=== PATIENT | female | born 2000 | race Caucasian/White ===

== ENCOUNTER 2021-06-12 10:48 | Inpatient (IN) | payer OTHER ==
[~2021-06-12] VITALS: Ht 157.5 cm; Wt 92.8 kg
[2021-06-12] MEDS ORDERED: PROCHLORPERAZINE 10 MG/2 ML VIAL. IV ONE (11:15)
[2021-06-12] MEDS ORDERED: IV NORMAL SALINE 1,000ML 1,000 ML IV ONE (11:15)
[2021-06-12] MEDS ORDERED: diphenhydrAMINE 50 MG/ML VIAL IVP ONE (11:15)
[2021-06-12] MEDS ORDERED: KETOROLAC 15 MG/ML VIAL. IVP ONE (11:15)
--- NOTE | 2021-06-12 11:15 | PHYS DOC ---
General Adult EDM: Chief Complaint: HEADACHE HPI: HPI: Patient is a 21-year-old female who presents to the ER with a headache that started yesterday. Patient states that she has been sleeping and therefore patient has had no treatment prior to arrival. She states that the headache is a frontal headache. She rates it 6 out of 10. She reports one episode of vomiting. She is also having photophobia. She states that this is the worst headache she has had. Patient does not have a history of headaches or migraines. She states that the headache is progressively gotten worse, denies thunderclap headache. She also denies diarrhea, blood in her vomit, abdominal pain, fevers, vision changes, sick exposures. (VANDANA GLOVER APRN) Review of Systems: Review of Systems: 14 body systems of the review of systems have been reviewed. See HPI for pertinent positive and negative responses, otherwise all other systems are negative, nonpertinent or noncontributory (VANDANA GLOVER APRN) Physical Exam: PE: Constitutional: Well developed, well nourished, no acute distress, non-toxic appearance. [] HENT: Normocephalic, atraumatic, bilateral external ears normal, oropharynx moist, no oral exudates, nose normal. [] Eyes: PERRLA, EOMI, 5 mm pupils bilaterally, conjunctiva normal, no discharge. [] Neck: Normal range of motion, no stridor, no nuchal rigidity Cardiovascular:Heart rate regular rhythm, no murmur [] Lungs & Thorax: Bilateral breath sounds clear to auscultation [] Abdomen: Bowel sounds normal, soft, no tenderness, no masses, no pulsatile masses. [] Skin: Warm, dry, no erythema, no rash. [] Back: Normal range of motion Extremities: No tenderness, no cyanosis, no clubbing, ROM intact, no edema. [] Neurologic: Alert and oriented X 3, normal motor function, normal sensory function, no focal deficits noted. [] Psychologic: Affect normal, judgement normal, mood normal. [] (VANDANA GLOVER APRN) Current Patient Data: Labs: Laboratory Tests Test 06/12/21 11:00 06/12/21 11:33 06/12/21 11:40 06/12/21 13:39 Urine Collection Type Unknown Urine Color Yellow Urine Clarity Clear Urine pH 6.0 Urine Specific [place] 1.020 Urine Protein Neg Urine Glucose (UA) Neg mg/dL Urine Ketones (Stick) Neg mg/dL Urine Blood Neg Urine Nitrite Neg Urine Bilirubin Neg Urine Urobilinogen Dipstick 0.2 mg/dL Urine Leukocyte Esterase Neg Urine RBC 0 /HPF Urine WBC Occ /HPF Urine Squamous Epithelial Cells Mod /LPF Urine Bacteria Few /HPF Urine Mucus Mod /LPF Bedside Urine HCG, Qualitative hcg negative White Blood Count 8.8 x10^3/uL Red Blood Count 4.36 x10^6/uL Hemoglobin 12.3 g/dL Hematocrit 37.1 % Mean Corpuscular Volume 85 fL Mean Corpuscular Hemoglobin 28 pg Mean Corpuscular Hemoglobin Concent 33 g/dL Red Cell Distribution Width 12.8 % Platelet Count 284 x10^3/uL Neutrophils (%) (Auto) 78 % Lymphocytes (%) (Auto) 17 % Monocytes (%) (Auto) 4 % Eosinophils (%) (Auto) 1 % Basophils (%) (Auto) 1 % Neutrophils # (Auto) 6.8 x10^3uL Lymphocytes # (Auto) 1.5 x10^3/uL Monocytes # (Auto) 0.4 x10^3/uL Eosinophils # (Auto) 0.1 x10^3/uL Basophils # (Auto) 0.1 x10^3/uL Sodium Level 140 mmol/L Potassium Level 3.9 mmol/L Chloride Level 105 mmol/L Carbon Dioxide Level 23 mmol/L Anion Gap 12 Blood Urea Nitrogen 10 mg/dL Creatinine 0.6 mg/dL Estimated GFR (Cockcroft-Gault) 126.2 BUN/Creatinine Ratio 17 Glucose Level 101 mg/dL Calcium Level 8.8 mg/dL Total Bilirubin 0.3 mg/dL Aspartate Amino Transf (AST/SGOT) 15 U/L Alanine Aminotransferase (ALT/SGPT) 16 U/L Alkaline Phosphatase 96 U/L Total Protein 7.2 g/dL Albumin 3.1 g/dL Albumin/Globulin Ratio 0.8 SARS-CoV-2 Antigen (Rapid) Negative Test 06/12/21 15:28 Prothrombin Time 9.4 SEC Prothromb Time International Ratio 0.9 Activated Partial Thromboplast Time 23 SEC Current Medications Medications (Trade) Dose Ordered Sig/Jarad Route PRN Reason Start Time Stop Time Status Last Admin Dose Admin Prochlorperazine Edisylate (Compazine) 10 mg 1X ONCE IV 06/12/21 11:15 06/12/21 11:22 DC 06/12/21 11:39 Sodium Chloride 1,000 ml @ 1,000 mls/hr 1X ONCE IV 06/12/21 11:15 06/12/21 12:14 DC 06/12/21 11:40 Diphenhydramine HCl (Benadryl) 25 mg 1X ONCE IVP 06/12/21 11:15 06/12/21 11:22 DC 06/12/21 11:39 Ketorolac Tromethamine (Toradol 15mg Vial) 15 mg 1X ONCE IVP 06/12/21 11:15 06/12/21 11:22 DC 06/12/21 11:40 Diphenhydramine HCl (Benadryl) 50 mg STK-MED ONCE .ROUTE 06/12/21 11:17 06/12/21 11:18 DC Prochlorperazine Edisylate (Compazine) 10 mg STK-MED ONCE .ROUTE 06/12/21 11:18 06/12/21 11:18 DC Ketorolac Tromethamine (Toradol 15mg Vial) 15 mg STK-MED ONCE .ROUTE 06/12/21 11:18 06/12/21 11:19 DC Iohexol (Omnipaque 350 Mg/ml) 100 ml 1X ONCE IV 06/12/21 12:45 06/12/21 12:50 DC 06/12/21 13:00 Heparin Sodium/ Dextrose 250 ml @ 15 mls/hr CONT PRN IV SEE I/O RECORD 06/12/21 16:15 Heparin Sodium (Porcine) (Heparin Sodium) 7,450 unit 1X ONCE IV 06/12/21 16:15 06/12/21 16:26 DC Heparin Sodium (Porcine) (Heparin Sodium) 2,800 unit PRN Q6HRS PRN IV FOR PTT LESS THAN 24 SECONDS 06/12/21 16:15 (VANDANA GLOVER APRN) EKG: EKG: [] (VANDANA GLOVER APRN) Radiology/Procedures: Radiology/Procedures: REASON: headache PROCEDURE: CT HEAD WO CONTRAST CT HEAD/BRAIN WO Date: 06/12/2021 11:33 AM Clinical Indication: headache Comparison: None. Technique: 5 mm axial tomographic images were obtained of the head without contrast. These were viewed on brain and bone windows. One or more of the following dose reduction techniques were utilized: Automated exposure control (AEC), Adjustment of mA and/or kV according to patient size, Use of iterative reconstruction technique such as ASiR, CT scan done according to ALARA and image gently/image wisely Findings: Asymmetric hyperdensity in the left transverse sinus. The brain parenchyma is normal in attenuation. No intra- or extra-axial mass or fluid collection. No acute hemorrhage. The ventricles are normal in size, shape, and morphology. The hernández-white matter junction is normal. The subarachnoid cisterns are patent. The visualized paranasal sinuses are normal. The visualized portions of the orbits and globes are normal. The mastoid air cells are clear. The pediatric registered nurse topogram shows no lytic lesion or fracture. Impression: Asymmetric hyperdensity in the left transverse sinus. CT venogram is recommended to exclude dural venous sinus thrombosis. Electronically signed by: Galina Curiel MD (06/12/2021 11:40 AM) [id number] DICTATED AND SIGNED BY: GALINA CURIEL MD DATE: 06/12/21 1135 CC: VANDANA GLOVER APRN; MIRELLA SR MD, MPH ~MTH0 0 []PROCEDURE: CT ANGIOGRAPHY HEAD CT venogram of the head with contrast 06/12/2021 CLINICAL HISTORY: Headaches. Asymmetric density seen within the left transverse sinus on CT scan of the head from earlier today. TECHNIQUE: After the intravenous administration of 100 cc of Omnipaque 350 using a 40 second delay, contiguous, 0.625 mm axial sections were obtained through the head. 2 mm reconstructed axial and 3-D MIP sagittal and coronal along with volume rendered 3-D reconstructed images were obtained. One or more of the following individualized dose reduction techniques were utilized for this study: 1. Automated exposure control. 2. Adjustment of the mA and/or kV according to patient size. 3. Use of iterative reconstruction technique. FINDINGS: Comparison is made to the patient's CT scan of the head performed earlier today. A largely occlusive filling defect consistent with thrombus is seen involving the majority of the left transverse sinus. The right transverse sinus is patent. The superior sagittal sinus, inferior sagittal sinus, vein of Femi and straight sinus are patent. The sigmoid sinuses, and jugular bulbs are patent. No area of abnormal parenchymal contrast enhancement is seen. 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 This finding was discussed with the emergency department. FOR INTERNAL CODING PURPOSES RESULT CODE: (C) Electronically signed by: Baron Arceo MD (06/12/2021 1:27 PM) [id number] DICTATED AND SIGNED BY: BARON ARCEO MD DATE: 06/12/21 131 CC: ZONIA MEADOWS DO; VANDANA GLOVER APRN; MIRELLA SR MD, MPH ~MTH0 0 (VANDANA GLOVER APRN) Heart Score: C/O Chest Pain: No Risk Factors: Risk Factors: DM, Current or recent (<one month) smoker, HTN, HLP, family history of CAD, obesity. Risk Scores: Score 0 - 3: 2.5% MACE over next 6 weeks - Discharge Home Score 4 - 6: 20.3% MACE over next 6 weeks - Admit for Clinical Observation Score 7 - 10: 72.7% MACE over next 6 weeks - Early Invasive Strategies (VANDANA GLOVER APRN) Course & Med Decision Making: Course & Med Decision Making Pertinent Labs and Imaging studies reviewed. (See chart for details) [] Patient is a 21-year-old female being seen in the ER for frontal headache with nausea/vomiting and photophobia. Patient does have a history of headaches. Patient denies any nuchal rigidity or meningeal signs. Patient denies thunderclap headache symptoms. Patient has no medical history. Her vital signs are stable. Her physical exam is reassuring. Work-up in the ER consisted of a CT scan of her head since patient does not have a history of headaches and she states this is the worst headache that she has had. Patient treated with migraine cocktail. She states that that has improved her headache. CT scan of head shows left transverse sinus thrombosis. I spoke to Dr. Savage at [facility] and he stated that he could not accept the patient at [facility] due to to the possibility of acute intervention needed. I attempted to transfer the patient to [facility]. I spoke to Dr. Marquis who is on-call for the neurology group she stated that the patient would only need heparin administration no acute intervention and because is on high-volume, they cannot accept the patient at this time. Patient was given heparin bolus and heparin drip. I spoke to Dr. Mccarthy and he agreed to see the patient in the hospital. I spoke to Dr. Diamond and discussed patient's case with him, he agreed to accept the patient under his services. Patient updated on findings and plan of care. Patient is agreeable to plan of care. Patient's vital signs continue to be stable and she is in no acute distress and alert and focal neurological deficits. Care transferred at 1718 (VANDANA GLOVER APRN) Course & Med Decision Making I was the Attending physician on the above date of service of this patient. This patient was evaluated, examined, treated, and dispositioned from the emergency department by the mid-level practitioner. I reviewed initial CT head findings w [facility] and recommended further investigation. I coordinated care and recommended hospital transfer, given COVID-19 pandemic and issues with capacity at all [facility], decision was made to admit here. Electronically signed, Zonia Meadows DO (ZONIA MEADOWS DO) Florentin Disclaimer: Florentin Disclaimer: This electronic medical record was generated, in whole or in part, using a voice recognition dictation system. (VANDANA GLOVER APRN) Departure Departure: Impression: Primary Impression: Transverse sinus thrombosis Disposition: ADMITTED INPATIENT Admitting Physician: Mirna Polanco (VANDANA GLOVER APRN) Condition: STABLE Referrals: MIRELLA SR MD, MPH (PCP) VANDANA GLOVER APRN Jun 12, 2021 11:15 ZONIA MEADOWS DO Jun 13, 2021 06:27
[2021-06-12] MEDS ORDERED: diphenhydrAMINE 50 MG/ML VIAL ONE (11:17)
[2021-06-12] MEDS ORDERED: KETOROLAC 15 MG/ML VIAL. ONE (11:18)
[2021-06-12] MEDS ORDERED: PROCHLORPERAZINE 10 MG/2 ML VIAL. ONE (11:18)
--- NOTE | 2021-06-12 11:43 | RAD ---
CT HEAD/BRAIN WO Date: 06/12/2021 11:33 AM Clinical Indication: headache Comparison: None. Technique: 5 mm axial tomographic images were obtained of the head without contrast. These were view ed on brain and bone windows. One or more of the following dose reduction techniques were utilized: A utomated exposure control (AEC), Adjustment of mA and/or kV according to patient size, Use of iterati ve reconstruction technique such as ASiR, CT scan done according to ALARA and image gently/image rizzo ly Findings: Asymmetric hyperdensity in the left transverse sinus. The brain parenchyma is normal in attenuation. No intra- or extra-axial mass or fluid collection. No acute hemorrhage. The ventricles are normal in size, shape, and morphology. The hernández-white matter annalee ction is normal. The subarachnoid cisterns are patent. The visualized paranasal sinuses are normal. The visualized portions of the orbits and globes are no rmal. The mastoid air cells are clear. The wind technician topogram shows no lytic lesion or fracture. Impression: Asymmetric hyperdensity in the left transverse sinus. CT venogram is recommended to exclude dural livier ous sinus thrombosis. Electronically signed by: Adam Curiel MD (06/12/2021 11:40 AM) [id number]
[2021-06-12 12:18] LABS: BILIRUBIN,URINE NEG (NEG); CLARITY,URINE CLEAR; COLOR,URINE YELLOW; GLUCOSE,URINE NEG (NEG)
[2021-06-12 12:19] LABS: BACTERIA,URINE FEW /HPF (0-FEW); NITRITE,URINE NEG (NEG); RBC,URINE 0 /HPF (0-2); SQUAMOUS EPITHELIAL CELL,UR MOD /LPF; UROBILINOGEN,URINE 0.2 mg/dL (0.2 mg/dL); WBC,URINE OCC /HPF (0-4)
[2021-06-12] MEDS ORDERED: IOHEXOL 350 MG/ML 100 ML VIAL. IV ONE (12:45)
--- NOTE | 2021-06-12 13:30 | RAD ---
CT venogram of the head with contrast 06/12/2021 CLINICAL HISTORY: Headaches. Asymmetric density seen within the left transverse sinus on CT scan of t he head from earlier today. TECHNIQUE: After the intravenous administration of 100 cc of Omnipaque 350 using a 40 second delay, c ontiguous, 0.625 mm axial sections were obtained through the head. 2 mm reconstructed axial and 3-D M IP sagittal and coronal along with volume rendered 3-D reconstructed images were obtained. One or more of the following individualized dose reduction techniques were utilized for this study: 1. Automated exposure control. 2. Adjustment of the mA and/or kV according to patient size. 3. Use of iterative reconstruction technique. FINDINGS: Comparison is made to the patient's CT scan of the head performed earlier today. A largely occlusive filling defect consistent with thrombus is seen involving the majority of the lef t transverse sinus. The right transverse sinus is patent. The superior sagittal sinus, inferior sagit evelia sinus, vein of Femi and straight sinus are patent. The sigmoid sinuses, and jugular bulbs are pa tent. No area of abnormal parenchymal contrast enhancement is seen. 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 This finding was discussed with the emergency department. FOR INTERNAL CODING PURPOSES RESULT CODE: (C) Electronically signed by: Baron Arceo MD (06/12/2021 1:27 PM) [id number]
[2021-06-12 14:39] LABS: BASO # 0.1 x10^3/uL (0.0-0.2); BASO % 1 % (0-3); EOS # 0.1 x10^3/uL (0.0-0.7); EOS % 1 % (0-3); HEMATOCRIT 37.1 % (36.0-47.0); HEMOGLOBIN 12.3 g/dL (12.0-15.5); LYMPH # 1.5 x10^3/uL (1.0-4.8); LYMPH % 17 % (24-48); MEAN CORPUSCULAR HEMOGLOBIN 28 pg (25-35); MEAN CORPUSCULAR HGB CONC 33 g/dL (31-37); MEAN CORPUSCULAR VOLUME 85 fL (79-100); MONO # 0.4 x10^3/uL (0.0-1.1); MONO % 4 % (0-9); NEUT # 6.8 x10^3uL (1.8-7.7); NEUT % 78 % (31-73); PLATELET COUNT 284 x10^3/uL (140-400); RED BLOOD COUNT 4.36 x10^6/uL (3.50-5.40); RED CELL DISTRIBUTION WIDTH 12.8 % (11.5-14.5); WHITE BLOOD COUNT 8.8 x10^3/uL (4.0-11.0)
[2021-06-12 14:47] LABS: CALCIUM 8.8 mg/dL (8.5-10.1); CREATININE 0.6 mg/dL (0.6-1.0); GFR 126.2; POTASSIUM 3.9 mmol/L (3.5-5.1)
[2021-06-12 14:50] LABS: ALBUMIN 3.1 g/dL (3.4-5.0); ALBUMIN/GLOBULIN RATIO 0.8 (1.0-1.7); TOTAL BILIRUBIN 0.3 mg/dL (0.2-1.0); TOTAL PROTEIN 7.2 g/dL (6.4-8.2)
[2021-06-12] MEDS ORDERED: HEPARIN 25,000UTS/250ML PREMIX 250 ML IV PRN (16:15)
[2021-06-12] MEDS ORDERED: HEPARIN for IV BOLUS 10,000 UNIT/10 ML VIAL. IV PRN (16:15)
[2021-06-12] MEDS ORDERED: HEPARIN for IV BOLUS 10,000 UNIT/10 ML VIAL. IV ONE (16:15)
--- NOTE | 2021-06-12 19:40 | NUR ---
The patient, MEENAKSHI CAMARILLO, 21 y/o, F admitted by BERTO HENAO MD, was given written information regarding hospital policies, unit procedures and contact persons. Valuables were checked and logged. Call light at bedside.
[2021-06-12 20:26] VITALS: BP 129/90
--- NOTE | 2021-06-12 23:00 | CONS ---
NEUROLOGY CONSULT REFERRING PHYSICIAN: Dr. Polanco. REASON FOR CONSULTATION: Severe headaches. HISTORY OF PRESENT ILLNESS: This is a 21-year-old right-handed female who has had constant headache confined to the left frontal region and associated with nausea since yesterday morning. According to the patient, her headache started at 11:00 a.m. on 06/11/2021. The headache has been constant and associated with nausea, but she vomited once. She also had photophobia. The patient started taking ibuprofen for headaches, but did not help, therefore she went to emergency room for further evaluation. In the emergency room, her vital signs were stable and head CT scan revealed evidence of left transverse sinus thrombosis. A CT venogram was performed and confirmed the diagnosis; therefore, the patient was started on heparin drip. According to the patient, her headache now is moderate at 5/10. She denies any nausea or vomiting since admission. She denies any history of head injuries, inflammation around the head. The patient has been on control patch, which was taken off today. Currently, she denies visual disturbances, hearing loss, weakness or paresthesia of the upper and lower extremities. She denies dysarthria, diplopia or vertigo. PAST SURGICAL HISTORY: Unremarkable. FAMILY HISTORY: Noncontributory. SOCIAL HISTORY: The patient is . She has no children. She denies smoking, but she drinks alcohol occasionally. CURRENT MEDICATION: She is on ibuprofen. ALLERGIES: No known drug allergies. PHYSICAL EXAMINATION: GENERAL: Obese female, in no acute distress. She weighs 93 kilos. VITAL SIGNS: Blood pressure 136/81, respiratory rate 16, pulse is 74 and regular, oxygen saturation 99% on room air and temperature 98.1. HEENT: Normocephalic, atraumatic, otherwise unremarkable. NECK: Supple. Negative for carotid bruit, lymphadenopathy or thyromegaly. LUNGS: Clear to A and P. CARDIOVASCULAR: Regular rate and rhythm, normal S1, S2. There is no S3, S4 or murmur. ABDOMEN: Soft. Bowel sounds positive. EXTREMITIES: Negative for cyanosis, clubbing or pedal edema. NEUROLOGIC: Mental status: The patient is alert and oriented x3. Speech is fluent. There is no language dysfunction. Memory, judgment and abstracting thinking are normal. The patient denies hallucination or delusion. Cranial nerves: Visual max are full. The pupils are reactive to light and accommodation. The extraocular movements are intact. There is no nystagmus. There is no facial motor or sensory deficits. Hearing is intact bilaterally. The palate is elevated symmetrically. Sternocleidomastoid muscles are powerful bilaterally. The patient shrugs her shoulders symmetrically, protrudes her tongue in the midline without fasciculation or atrophy. Motor examination: No focal muscle bulk wasting. The tone is normal. The strength is 5/5 throughout. Sensory examination revealed normal pinprick, light touch, vibratory and position senses. Deep tendon reflexes were symmetric and active without pathologic responses. Gait and coordination are normal. LABORATORY DATA: CBC revealed blood cells of 8.8 thousand, hemoglobin 12.3, hematocrit 37.1, platelet count 284,000. Chemistry revealed sodium of 140, potassium 3.9, chloride 105, CO2 23, BUN 10, creatinine 0.6, glucose is 101, calcium is 8.8. Liver enzymes are normal. Coagulation: PT is 9.4 and PTT is 23. Urinalysis is negative for urinary tract infections. Rapid COVID test is negative. IMPRESSION: Left cerebral venous sinus thrombosis (CVST) etiology uncertain, however, contributing factors include control patches. Other possibilities include systemic inflammation, lupus, antiphospholipid ____. RECOMMENDATIONS: 1. Anticoagulant -- heparin until the clot is resolved, then switch to Coumadin. The treatment should be continued for 3-4 months. 2. We will check blood for ABDOUL, protein C and protein S, ____ antibody, sed rate and CRP. 3. Headache ____ associated symptoms as pain, nausea or vomiting as needed. TONIO/SAEID DR: Monika TID: [id number]
[2021-06-12 23:32] VITALS: BP 128/86
[2021-06-13 01:13] LABS: BASO # 0.1 x10^3/uL (0.0-0.2); BASO % 1 % (0-3); EOS # 0.1 x10^3/uL (0.0-0.7); EOS % 1 % (0-3); HEMOGLOBIN 11.4 g/dL (12.0-15.5); LYMPH # 2.9 x10^3/uL (1.0-4.8); LYMPH % 30 % (24-48); MEAN CORPUSCULAR HEMOGLOBIN 29 pg (25-35); MEAN CORPUSCULAR HGB CONC 34 g/dL (31-37); MEAN CORPUSCULAR VOLUME 85 fL (79-100); MONO # 0.6 x10^3/uL (0.0-1.1); MONO % 6 % (0-9); NEUT # 5.9 x10^3uL (1.8-7.7); NEUT % 62 % (31-73); PLATELET COUNT 266 x10^3/uL (140-400); RED BLOOD COUNT 3.99 x10^6/uL (3.50-5.40); RED CELL DISTRIBUTION WIDTH 12.9 % (11.5-14.5); WHITE BLOOD COUNT 9.5 x10^3/uL (4.0-11.0)
[2021-06-13 01:51] LABS: ALBUMIN 2.6 g/dL (3.4-5.0); ALBUMIN/GLOBULIN RATIO 0.7 (1.0-1.7); CALCIUM 8.1 mg/dL (8.5-10.1); CREATININE 0.6 mg/dL (0.6-1.0); GFR 126.2; POTASSIUM 3.3 mmol/L (3.5-5.1); TOTAL BILIRUBIN 0.2 mg/dL (0.2-1.0); TOTAL PROTEIN 6.3 g/dL (6.4-8.2)
[2021-06-13] MEDS ORDERED: ALBU2.5V8 INH (04:05)
[2021-06-13] MEDS ORDERED: NORE1PAT10 TD (04:05)
[2021-06-13 06:17] VITALS: BP 122/82
[2021-06-13] MEDS ORDERED: APIXABAN 5 MG TABLET. PO SCH (11:00)
--- NOTE | 2021-06-13 11:00 | HP ---
ATTENDING PHYSICIAN: Dr. Palm. SUBJECTIVE: Headache. HISTORY OF PRESENT ILLNESS: The patient is a pleasant 21-year-old female who is fairly healthy. She has been prescribed a transdermal oral contraceptive by her systems development consultant. She developed headaches. Workup in the ED showed a CT of the head which documented a definite thrombosis of the left transverse sinus. There is a large filling defect. The superior sagittal sinuses, inferior sagittal sinuses and carotid bulbs are patent. She was started on heparin and admitted to the hospital for further treatment and evaluation. PAST MEDICAL HISTORY: Unremarkable for any hematologic issues. She is a nonsmoker, nondrinker. She is not on any medicines except for the transdermal contraceptive. She sees a family practice provider at [facility]. FAMILY HISTORY: Noncontributory. REVIEW OF SYSTEMS: Unremarkable for any fever, exposure, except localized headache, no diplopia. All other systems reviewed and turned out to be negative. PHYSICAL EXAMINATION: GENERAL: When I saw her, this is a very pleasant young female. INITIAL VITAL SIGNS: Showed a blood pressure of 122/80, pulse is 70 and regular. She is afebrile. Oxygen saturation 99% on room air. HEENT: Head is without trauma. Pupils are reactive. Sclerae nonicteric. Oropharynx clear. NECK: Supple, no bruits. LUNGS: Clear. CARDIOVASCULAR: Regular heart tones. No gallops. ABDOMEN: Soft. EXTREMITIES: Without edema. NEUROLOGIC FINDINGS: Focally intact. Speech is fluent. Tongue is midline. ASSESSMENT: 1. A 21-year-old female with spontaneous thrombosis of the left transverse sinus, a large vein in her brain. 2. Probable hypercoagulable state due to contraceptive therapy. PLAN: 1. Observation status. 2. Heparin has been started last night. I will convert her to oral anticoagulant. Current recommendation is 6 months therapy. 3. We will hold off her transdermal contraceptive for now. MICHAEL DR: Renan TID: [id number]
--- NOTE | 2021-06-13 11:06 | DS ---
DATE OF DISCHARGE: 06/13/2021 ATTENDING PHYSICIAN: Dr. Palm. FINAL DISCHARGE DIAGNOSES: 1. Spontaneous thrombosis of the left transverse sinus. 2. Headaches. 3. History of transdermal contraceptive use. HISTORY AND PHYSICAL: The patient is a pleasant 21-year-old female admitted with headaches and evidence of a spontaneous left transverse sinus thrombosis in her brain. She is on transdermal contraceptive. PHYSICAL EXAMINATION: Please see the dictated note. PERTINENT LABORATORY AND X-RAY STUDIES: She had some APTT runs because of heparin dosage. CBC was normal. Chemistry panel unremarkable. COURSE IN THE HOSPITAL: The patient was admitted. She was started on heparin. I converted her to Eliquis. She was doing better. Symptoms are improved and she could go home. Therefore, I wrote a script for Eliquis 5 mg b.i.d., duration of therapy will be 6 months' time. For now, I strongly suggest that she stop using her transdermal contraceptive. She has a primary care physician at [facility]. She will do followup there. The patient was then discharged from our hospital in stable condition with explicit instruction and followup care. MICHAEL DR: Renan TID: [id number]
[2021-06-13 11:22] VITALS: BP 127/86
[2021-06-13] MEDS ORDERED: APIXABAN 5 MG TABLET. PO ONE (11:45)
--- NOTE | 2021-06-13 13:01 | NUR ---
PT AMBULATED TO THE DOOR WITH STAFF ASSISTANCE AT APPROX 1300. PT GIVEN DISCHARGE INFORMATION AND DR WALKER WENT OVER ALL DISCHARGE INFORMATION WITH PT PRIOR TO DISCHARGE TO ANSWER ALL QUESTIONS AND MEDICATION INFORMATION.
[2021-06-14 20:08] LABS: ANA INTERP Negative (.)
[2021-06-15 14:10] LABS: ALBUM 2.8 g/dL (2.9-4.4); ALPHA 1 0.3 g/dL (0.0-0.4); PROTEIN TOTAL 6.1 g/dL (6.0-8.5); SPEP AG RATIO 0.8 (0.7-1.7)
== END 2021-06-13 13:36 | disposition home or self-care (01) | DRG 92 ==
LOC: ER 10:48 → 1 SOUTH 17:15
PROVIDERS: ADMIT Internal Medicine; ATTEND Internal Medicine
DX: G08 Intracranial and intraspinal phlebitis and thrombophlebitis (principal); D68.69 Other thrombophilia; Z79.01 Long term (current) use of anticoagulants; Z20.822 Contact with and (suspected) exposure to COVID-19
CPT/HCPCS: 36415; 70450; 70496; 80053; 81001; 81025; 82947; 84165; 85025; 85610; 85651; 85730; 86038; 86140; 87426; 96361; 96374; 96375; J0780; J1200; J1644; J1885; Q9967; U0003; 99285-25; J7030

== ENCOUNTER 2022-02-12 20:47 | Emergency (ER) | payer OTHER ==
[~2022-02-12] VITALS: Ht 157.5 cm; Wt 102.9 kg
[~2022-02-12 20:47] MED LIST: ALBU2.5V8 INH; NORE1PAT10 TD
[2022-02-12 20:50] VITALS: BP 127/86
--- NOTE | 2022-02-12 21:13 | PHYS DOC ---
Past History Past Surgical History: No Surgical History Alcohol Use: Rarely Adult General Chief Complaint Chief Complaint: VAGINAL PROBLEM HPI HPI Patient is a 21-year-old female presenting to the emergency department for evaluation of vaginal discharge. She says that this has been going on for several days and that she has vaginal itching as well. She denies fevers chills nausea vomiting diarrhea constipation dysuria hematuria or abdominal pain. She is concerned about STDs and would like to be treated. She is in no acute distress with normal vital signs. Review of Systems Review of Systems Constitutional: Denies fever or chills [] Respiratory: Denies cough or shortness of breath [] Cardiovascular: No additional information not addressed in HPI [] GI: Denies abdominal pain, nausea, vomiting, bloody stools or diarrhea [] : Denies dysuria or hematuria. Positive vaginal discharge. Musculoskeletal: Denies back pain or joint pain [] Neurologic: Denies headache, focal weakness or sensory changes [] All other systems were reviewed and found to be within normal limits, except as documented in this note. Allergies Allergies Allergies Coded Allergies Type Severity Reaction Last Updated Verified No Known Drug Allergies 06/12/21 No Physical Exam Physical Exam Constitutional: Well developed, well nourished, no acute distress, non-toxic appearance. [] Cardiovascular:Heart rate regular rhythm, no murmur [] Lungs & Thorax: Bilateral breath sounds clear to auscultation [] Abdomen: Bowel sounds normal, soft, no tenderness, no masses, no pulsatile masses. [] Skin: Warm, dry, no erythema, no rash. [] Back: No tenderness, no CVA tenderness. [] Neurologic: Alert and oriented X 3, normal motor function, normal sensory function, no focal deficits noted. [] EKG EKG [] Radiology/Procedures Radiology/Procedures [] Heart Score C/O Chest Pain: No Risk Factors: Risk Factors: DM, Current or recent (<one month) smoker, HTN, HLP, family history of CAD, obesity. Risk Scores: Risk Factors: DM, Current or recent (<one month) smoker, HTN, HLP, family history of CAD, obesity. Course & Med Decision Making Course & Med Decision Making I will check urinalysis and swabs and treat her with Rocephin Zithromax and Diflucan and reassess. Urinalysis is contaminated but she may have a urinary tract infection and she s ays she would like to be treated for UTI. Patient has repeat benign abdominal exam and continues to have normal vital signs and says she feels well and would like to go home so I will discharge her in stable condition told her to follow with her primary care provider within 2 days for recheck and come back to emergency department sooner with worsening pain fevers vomiting or other general concerns. Patient aware and agreeable with plan and verbalized understanding of the above instructions. Dragon Disclaimer Dragon Disclaimer This electronic medical record was generated, in whole or in part, using a voice recognition dictation system. Departure Departure: Impression: Primary Impression: Vaginal discharge Additional Impression: UTI (urinary tract infection) Disposition: HOME / SELF CARE / HOMELESS Condition: STABLE Referrals: MIRELLA SR MD, MPH (PCP) Patient Instructions: Candidal Vulvovaginitis, [place] Scripts Fluconazole (DIFLUCAN) 150 Mg Tablet 1 TAB PO ONCE, #1 TAB Take after finishing cipro Prov: MORENO MCCABE DO 02/12/22 Ciprofloxacin Hcl (CIPRO) 250 Mg Tablet 1 TAB PO BID for 3 Days, #6 TAB 0 Refills Prov: MORENO MCCABE DO 02/12/22 Problem Qualifiers MORENO MCCABE DO February 12, 2022 21:13
[2022-02-12] MEDS: FLUCONAZOLE 100 MG TABLET. PO ONE (21:32)
[2022-02-12] MEDS: AZITHROMYCIN 250 MG TABLET. PO ONE (21:33)
[2022-02-12 21:42] LABS: BACTERIA,URINE MANY /HPF (0-FEW); CLARITY,URINE CLOUDY; COLOR,URINE YELLOW; GLUCOSE,URINE NEG (NEG); NITRITE,URINE NEG (NEG); SQUAMOUS EPITHELIAL CELL,UR MANY /LPF; UROBILINOGEN,URINE 0.2 mg/dL (0.2 mg/dL); WBC,URINE >40 /HPF (0-4)
[2022-02-12] MEDS ORDERED: FLUC150T PO (22:25)
[2022-02-12] MEDS ORDERED: CIPR250T30 PO (22:25)
[2022-02-16 10:15] LABS: CHLAMYDIA PROBE Negative (Negative)
== END 2022-02-12 22:32 | disposition home or self-care (01) ==
LOC: ER 20:47
DX: N39.0 Urinary tract infection, site not specified (principal); N89.8 Other specified noninflammatory disorders of vagina
CPT/HCPCS: 81001; 81025; 87491; 87591; 96372; 99283; J0696; Q0111